=== PATIENT | male | born 1940 | race Caucasian/White ===

== ENCOUNTER 2019-06-08 14:22 | Emergency (ER) | payer MEDICARE, OTHER ==
--- NOTE | 2019-06-08 14:23 | ERPHSYRPT ---
- History of Present Illness Time Seen by Provider: 06/08/19 14:23 Source: patient, family Exam Limitations: no limitations Physician History: 78 y/o white male with h/o chronic renal insufficiency and sees digital community manager dr. bro, presents with asymptomatic hyperglycemia. pt had labs obtained this 0800am. lab results reported to pts pcp dr. fowler. dr. burgess is covering for dr. fowler. pt told to go to ED for evaluation. pt denies any symptoms. pt has no known dx of diabetes Timing/Duration: today Severity: mild Modifying Factors: Improves With: nothing Associated Symptoms: denies symptoms Allergies/Adverse Reactions: No Known Drug Allergies Allergy (Verified 06/08/19 14:46) Home Medications: Amlodipine Besylate [Norvasc] 10 mg PO DAILY 06/08/19 [History] Dorzolamide HCl/Pf [Dorzolamide 2% Eye Drop] 10 ml OP BID 06/08/19 [History] Eplerenone 50 mg PO DAILY 06/08/19 [History] Hydrochlorothiazide 25 mg [hydroDIURIL 25 MG] 25 mg PO DAILY 06/08/19 [ History] Latanoprost 1 drop OP HS 06/08/19 [History] PANTOPRAZOLE 40 mg Tablet [Protonix 40MG Tablet] 40 mg PO QAM 06/08/19 [ History] Simvastatin 20Mg [Zocor 20Mg] 20 mg PO DAILY 06/08/19 [History] - Review of Systems Constitutional: No Symptoms Eyes: No Symptoms Ears, Nose, & Throat: No Symptoms Respiratory: No Symptoms Cardiac: No Symptoms Abdominal/Gastrointestinal: No Symptoms Genitourinary Symptoms: No Symptoms Musculoskeletal: No Symptoms Skin: No Symptoms Neurological: No Symptoms Psychological: No Symptoms Endocrine: No Symptoms Hematologic/Lymphatic: No Symptoms Immunological/Allergic: No Symptoms All Other Systems: Reviewed and Negative - Past Medical History Pertinent Past Medical History: Yes Neurological History: No Pertinent History ENT History: No Pertinent History Cardiac History: No Pertinent History Respiratory History: No Pertinent History Endocrine Medical History: No Pertinent History Musculoskeletal History: No Pertinent History GI Medical History: No Pertinent History History: Renal Disease Psycho-Social History: No Pertinent History Male Reproductive Disorders: No Pertinent History - Past Surgical History Past Surgical History: No Neuro Surgical History: No Pertinent History Cardiac: No Pertinent History Respiratory: No Pertinent History Gastrointestinal: No Pertinent History Genitourinary: No Pertinent History Musculoskeletal: No Pertinent History Male Surgical History: No Pertinent History - Nursing Vital Signs Nursing Vital Signs: Initial Vital Signs Temperature 98.3 F 06/08/19 14:30 Pulse Rate 95 H 06/08/19 14:30 Blood Pressure 137/90 06/08/19 14:30 O2 Sat by Pulse Oximetry 96 06/08/19 14:30 Pain Scale Pain Intensity 0 - Physical Exam General Appearance: no apparent distress Eye Exam: PERRL/EOMI Ears, Nose, Throat Exam: normal ENT inspection, moist mucous membranes Neck Exam: normal inspection, non-tender, supple, full range of motion Respiratory Exam: normal breath sounds Cardiovascular Exam: regular rate/rhythm, normal heart sounds, normal peripheral pulses Gastrointestinal/Abdomen Exam: soft, normal bowel sounds, No tenderness Rectal Exam: not done Back Exam: normal inspection, normal range of motion, No CVA tenderness, No vertebral tenderness Extremity Exam: normal inspection, normal range of motion, pelvis stable Neurologic Exam: alert, oriented x 3, cooperative, heat reader II-XII nml as tested Skin Exam: normal color, warm, dry Lymphatic Exam: No adenopathy SpO2 Interpretation: normal O2 Delivery: Room Air - Course Nursing assessment & vital signs reviewed: Yes Ordered Tests: Active Orders 24 hr Category Date Time Status ACCUCHECK [Accucheck] STAT Care 06/08/19 15:09 Active IV Insertion STAT Care 06/08/19 14:51 Active Pulse Oximetry (ED) STAT Care 06/08/19 14:51 Active BMP Stat Lab 06/08/19 15:00 Completed Lactic Acid Stat Lab 06/08/19 17:32 Received Lactic Acid Urgent Lab 06/08/19 15:16 Completed Medication Summary Discontinued Medications Generic Name Dose Route Start Last Admin Trade Name Freq PRN Reason Stop Dose Admin Sodium Chloride 1,000 mls @ 999 mls/hr 06/08/19 14:51 06/08/19 16:07 Sodium Chloride 0.9% 1000 Ml IV 06/08/19 15:51 Infused .Q1H1M STA Infusion Sodium Chloride Confirm 06/08/19 15:01 Sodium Chloride 0.9% 1000 Ml Administered 06/08/19 15:02 Dose 1,000 mls @ ud .ROUTE .STK-MED ONE Insulin Human Regular 18 unit 06/08/19 14:59 06/08/19 15:12 Novolin R IV 06/08/19 15:00 18 unit STAT ONE Administration Insulin Human Regular Confirm 06/08/19 15:09 Novolin R Administered 06/08/19 15:10 Dose 18 unit .ROUTE .STK-MED ONE Insulin Human Regular 15 unit 06/08/19 16:52 06/08/19 17:03 Novolin R IV 06/08/19 16:53 15 unit STAT ONE Administration Insulin Human Regular Confirm 06/08/19 16:59 Novolin R Administered 06/08/19 17:00 Dose 15 unit .ROUTE .STK-MED ONE Lab/Rad Data: Laboratory Result Diagrams 06/08/19 15:00 Laboratory Results 06/08/19 06/08/19 06/08/19 Range/Units 15:16 15:00 15:00 Sodium 128 L (137-145) mmol/L Potassium 3.8 (3.5-5.1) mmol/L Chloride 89 L (98-107) mmol/L Carbon Dioxide 23 (22-30) mmol/L Anion Gap 20.3 H (5-15) MEQ/L BUN 33 H (9-20) mg/dL Creatinine 1.86 H (0.66-1.25) mg/dL Estimated GFR 37.7 ML/MIN Glucose 638 H* (74-106) mg/dL Hemoglobin A1c > 14.00 H (4.5-6.0) % Lactic Acid 2.0 (0.4-2.0) Calcium 9.6 (8.4-10.2) mg/dL - Progress Progress: improved, re-examined Progress Note: 06/08/19 17:48 pts blood glucose is 335. spoke with dr. burgess. he states pt does not require admission. he wants me to write a prescription for lantus insulin 20 units qam and jardiance 25mg orally daily. i will write rx for the lantus as he wishes but i will write for jardiance 10mg orally daily. pt is to call dr. eubanks office tomorrow am to arrange further management Discussed with : Jannet - Departure Departure Disposition: Home Clinical Impression: Hyperglycemia Condition: Stable Critical Care Time: No Referrals: JUAN FOWLER [Primary Care Provider] - Additional Instructions: call dr. fowler's office tomorrow morning at 0830 to arrange follow up THIS WEEK. follow the diabetic diet provided. take medications as prescribed. Prescriptions: Empagliflozin [Jardiance] 10 mg PO QAM #5 tablet Insulin Glargine [Lantus Insulin] 20 unit SQ QAM #10 ml
[2019-06-08] MEDS ORDERED: Sodium Chloride 0.9% 1000 ML 1,000 ML IV STA (14:51)
[2019-06-08] MEDS ORDERED: NovoLIN R IV ONE ×2 (14:59→16:52)
[2019-06-08] MEDS ORDERED: Sodium Chloride 0.9% 1000 ML 1,000 ML ONE (15:01)
[2019-06-08] MEDS ORDERED: NovoLIN R ONE ×2 (15:09→16:59)
[2019-06-08 15:27] LABS: ANION GAP 20.3 MEQ/L (5-15); Calcium 9.6 mg/dL (8.4-10.2); Creatinine 1 1.86 mg/dL (0.66-1.25); Potassium 3.8 mmol/L (3.5-5.1)
[2019-06-08 17:04] VITALS: BP 126/83; PULSE 65; O2SAT 97
== END 2019-06-08 18:41 | disposition home or self-care (01) ==
LOC: ED 14:22
DX: R73.9 Hyperglycemia, unspecified (principal); N18.9 Chronic kidney disease, unspecified; Z79.899 Other long term (current) drug therapy
CPT/HCPCS: 36000; 36415; 80048; 82962; 83036; 83605; 94760; 96360; 96374; 96376; 99284; A9270-GY